=== PATIENT | female | born 1995 | race Caucasian/White ===

== ENCOUNTER 2017-01-17 01:30 | Emergency (ER) | payer OTHER ==
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
--- NOTE | 2017-01-17 03:28 | ED ORDER SUMMARY ---
..... Patient: JASMYN HERMAN OrderSheet [facility] VisitID: [id number] [place] [address] 21y, F Registration Date/Time: 01/17/2017 ORDER SHEET Weight: 61.2 kg (stated) Allergies: No Known Drug Allergy GENERAL ORDERS: US OB 1st Trimester (a few months ago) Urgent (01:01/17/2017 Karyna Johnson) (Ack 1:59 [facility] [employer] Account [employer]) (2:18 [facility] [employer]) CBC w Diff Urgent (:01/17/2017 Karyna Johnson) (Ack 1:59 CHagnayely [facility] [employer] Account Executive) (2:10 EInderbitzen R.N.) CMP Urgent (:01/17/2017 Karyna Johnson) (Ack 1:59 [facility] [employer]) (2:10 EInderbitzen R.N.) UA-Culture if indicated Urgent (:01/17/2017 Karyna Johnson) (Ack 1:59 [facility] [employer] Executive) (2:10 EInderbitzen R.N.) PT with INR Urgent (:01/17/2017 Karyna Johnson) (Ack 1:59 [facility] [employer] Account Executive) (2:10 EInderbitzen R.N.) PTT Urgent (:01/17/2017 Karyna Johnson) (Ack 1:59 [facility] [employer] Account Executive) (2:10 EInderbitzen R.N.) Type & Rh Urgent (:01/17/2017 Karyna Johnson) (Ack 1:59 [facility] [employer] Executive) (2:10 EInderbitzen R.N.) Serum Quantitative Urgent (:01/17/2017 Karyna Johnson) (Ack 1:59 CHagnayely [facility] [employer] Account Executive) (2:10 EInderbitzen R.N.) Fibrinogen Level Urgent (:01/17/2017 Karyna Johnson) (Ack 1:59 [facility] [employer]) (2:10 EInderbitzen R.N.) MEDICATION ORDERS: Keflex PO 500 mg (NOW) (03:28 01/17/2017 Karyna Johnson) (Ack 3:33 EInderdara R.N.) (3:40 EInderbitzen R.N.) IV FLUIDS: IV NS : initial bolus 1000 mL (1000 mL/hr), then none - for X1 (NOW) (01:56 01/17/2017 Karyna Johnson) (2:11 EInderdara R.N.) Morphine IV 4 mg (HIGH ALERT MEDICATION, NOW) (01:56 01/17/2017 Karyna Johnson) (2:16 EInderbitzen R.N.) ORDER SHEET NOTES: [Electronically signed by Magi Cantrell R.N. (03:42 01/17/2017)] [Electronically signed by Too Dom[address]nguez Dr[address] (05:28 01/19/2017)] [Electronically locked/signed by Magi Cantrell R.N. (03:42 01/17/2017)]
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
--- NOTE | 2017-01-17 03:28 | ED ORDER SUMMARY ---
..... Patient: JASMYN HERMAN OrderSheet [facility] VisitID: [id number] [place] [address] 21y, F Registration Date/Time: 01/17/2017 ORDER SHEET Weight: 61.2 kg (stated) Allergies: No Known Drug Allergy GENERAL ORDERS: US OB 1st Trimester (a few months ago) Urgent (01:01/17/2017 Karyna Johnson) (Ack 1:59 CHagerty ER Waste Minimization Technician) (2:18 CHagerty ER Waste Minimization Technician) CBC w Diff Urgent (:01/17/2017 Karyna Johnson) (Ack 1:59 CHagnayely ER Waste Minimization Technician) (2:10 EInderbitzen R.N.) CMP Urgent (:01/17/2017 Karyna Johnson) (Ack 1:59 CHagerty ER Waste Minimization Technician) (2:10 EInderbitzen R.N.) UA-Culture if indicated Urgent (:01/17/2017 Karyna Johnson) (Ack 1:59 CHagerty ER Waste Minimization Technician) (2:10 EInderbitzen R.N.) PT with INR Urgent (:01/17/2017 Karyna Johnson) (Ack 1:59 CHagnayely ER Waste Minimization Technician) (2:10 EInderbitzen R.N.) PTT Urgent (:01/17/2017 Karyna Johnson) (Ack 1:59 CHagerty ER Waste Minimization Technician) (2:10 EInderbitzen R.N.) Type & Rh Urgent (:01/17/2017 Karyna Johnson) (Ack 1:59 CHagerty ER Waste Minimization Technician) (2:10 EInderbitzen R.N.) Serum Quantitative Urgent (:01/17/2017 Karyna Johnson) (Ack 1:59 CHagnayely ER Waste Minimization Technician) (2:10 EInderbitzen R.N.) Fibrinogen Level Urgent (:01/17/2017 Karyna Johnson) (Ack 1:59 CHagerty ER Waste Minimization Technician) (2:10 EInderbitzen R.N.) MEDICATION ORDERS: Keflex PO 500 mg (NOW) (03:28 01/17/2017 Karyna Johnson) (Ack 3:33 EInderdara R.N.) (3:40 EInderbitzen R.N.) IV FLUIDS: IV NS : initial bolus 1000 mL (1000 mL/hr), then none - for X1 (NOW) (01:56 01/17/2017 Karyna Johnson) (2:11 EInderdara R.N.) Morphine IV 4 mg (HIGH ALERT MEDICATION, NOW) (01:56 01/17/2017 Karyna Johnson) (2:16 EInderbitzen R.N.) ORDER SHEET NOTES: [Electronically signed by Magi Cantrell R.N. (03:42 01/17/2017)] [Electronically signed by Too Domínguez Dr. (05:28 01/19/2017)] [Electronically locked/signed by Magi Cantrell R.N. (03:42 01/17/2017)]
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
--- NOTE | 2017-01-19 05:28 | ED MAR SUMMARY ---
..... Medication Administration Record [facility] [address] [place] [address] Patient: JASMYN HERMAN Visit ID: [id number] 21y, F Weight: 61.2 kg Height/Length: 63 in BMI: 23.9 ALLERGIES: No Known Drug Allergy Start 02:07 01/17/2017 Magi Cantrell R.N., Stop 03:10 01/17/2017 Magi Cantrell R.N. Medication Administered: IV NS (SALINE), Dose: IV Fluids over 1 hour(s), Rate: 1000 mL/hr, Dispensed: 1000 mL bag, Site: #1 right AC. Medication Ordered: IV NS : initial bolus 1000 mL (1000 mL/hr), then none - for X1 (NOW). Given 02:14 01/17/2017 Magi Cantrell R.N. Medication Administered: MORPHINE [IVP], Dose: 4 mg IVP over 1 minute(s), Site: #1 right AC. Medication Ordered: Morphine IV 4 mg (HIGH ALERT MEDICATION, NOW). Given 03:35 01/17/2017 Magi Cantrell R.N. Medication Administered: KEFLEX [PO] (CEPHALEXIN), Dose: 500 mg Capsules PO. Medication Ordered: Keflex PO 500 mg (NOW).
--- NOTE | 2017-01-19 05:28 | ED MED RECONCILIATION SUMMARY ---
Patient: JASMYN HERMAN Medication Reconciliation Report [facility] VisitID: [id number] [address] [place] [address] 21y, F Registration Date/Time: 01/17/2017 Weight: 61.2 kg Height/Length: 63 in. BMI: 23.9 ALLERGIES: No Known Drug Allergy The patient's Home Medications are listed below: CONTINUE TAKING THE FOLLOWING MEDICATIONS: Vitamins Oral The source(s) of the original Home Medication information: Not obtained. The following Medications were given to the patient in the Emergency Department: IV NS IV Fluids bolus 0, then 1000 mL/hr, administered: 01/17/2017 2:07:00 AM Morphine [IVP] IVP 4 mg, administered: 01/17/2017 2:14:00 AM Keflex [PO] PO 500 mg, administered: 01/17/2017 3:35:00 AM The following Medications were prescribed to the patient: Cephalexin 500 mg: take 1 capsule orally every 8 hours for 5 days. No refill.(disp 15 caps) -- Too Domínguez Dr. [place] 5 mg / 325 mg tablets: take 1 orally every 6 hours as needed for pain. Dispense twelve (12). No refill. Substitution is permissible. -- Too Domínguez Dr.
--- NOTE | 2017-01-19 05:28 | ED MED RECONCILIATION SUMMARY ---
Patient: JASMYN HERMAN Medication Reconciliation Report [facility] VisitID: [id number] [address] [place] [address] 21y, F Registration Date/Time: 01/17/2017 Weight: 61.2 kg Height/Length: 63 in. BMI: 23.9 ALLERGIES: No Known Drug Allergy The patient's Home Medications are listed below: CONTINUE TAKING THE FOLLOWING MEDICATIONS: Vitamins Oral The source(s) of the original Home Medication information: Not obtained. The following Medications were given to the patient in the Emergency Department: IV NS IV Fluids bolus 0, then 1000 mL/hr, administered: 01/17/2017 2:07:00 AM Morphine [IVP] IVP 4 mg, administered: 01/17/2017 2:14:00 AM Keflex [PO] PO 500 mg, administered: 01/17/2017 3:35:00 AM The following Medications were prescribed to the patient: Cephalexin 500 mg: take 1 capsule orally every 8 hours for 5 days. No refill.(disp 15 caps) -- Too Domínguez Dr. [place] 5 mg / 325 mg tablets: take 1 orally every 6 hours as needed for pain. Dispense twelve (12). No refill. Substitution is permissible. -- Too Domínguez Dr.
--- NOTE | 2017-01-19 05:28 | ED MAR SUMMARY ---
..... Medication Administration Record [facility] [address] [place] [address] Patient: JASMYN HERMAN Visit ID: [id number] 21y, F Weight: 61.2 kg Height/Length: 63 in BMI: 23.9 ALLERGIES: No Known Drug Allergy Start 02:07 01/17/2017 Magi Cantrell R.N., Stop 03:10 01/17/2017 Magi Cantrell R.N. Medication Administered: IV NS (SALINE), Dose: IV Fluids over 1 hour(s), Rate: 1000 mL/hr, Dispensed: 1000 mL bag, Site: #1 right AC. Medication Ordered: IV NS : initial bolus 1000 mL (1000 mL/hr), then none - for X1 (NOW). Given 02:14 01/17/2017 Magi Cantrell R.N. Medication Administered: MORPHINE [IVP], Dose: 4 mg IVP over 1 minute(s), Site: #1 right AC. Medication Ordered: Morphine IV 4 mg (HIGH ALERT MEDICATION, NOW). Given 03:35 01/17/2017 Magi Cantrell R.N. Medication Administered: KEFLEX [PO] (CEPHALEXIN), Dose: 500 mg Capsules PO. Medication Ordered: Keflex PO 500 mg (NOW).
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
== END 2017-01-17 03:41 | disposition home or self-care (01) ==
LOC: ED SRH 01:30
DX: O9A.211 Injury, poisoning and certain other consequences of external causes complicating pregnancy, first trimester (principal); Z3A.10 10 weeks gestation of pregnancy; S13.4XXA Sprain of ligaments of cervical spine, initial encounter; S33.5XXA Sprain of ligaments of lumbar spine, initial encounter; V48.6XXA Car passenger injured in noncollision transport accident in traffic accident, initial encounter; O23.41 Unspecified infection of urinary tract in pregnancy, first trimester; S00.33XA Contusion of nose, initial encounter; Y93.89 Activity, other specified; Y99.8 Other external cause status; Y92.410 Unspecified street and highway as the place of occurrence of the external cause
CPT/HCPCS: 90001; 90004; 90100; 90155; 90197; 90469; 94001; 94050; 94060; 95059

== ENCOUNTER 2017-03-14 13:07 | Outpatient (CLI) | payer OTHER ==
--- NOTE | 2017-03-14 15:23 | DIAGNOSTIC IMAGING REPORT ---
PROCEDURE: US OB DETAILED ANATOMIC INDICATION: ANATOMY TECHNIQUE: Baum scale, color, and spectral Doppler images of the second trimester gravid uterus were obtained. COMPARISON: None. FINDINGS: A single living intrauterine is in vertex presentation. There is regular cardiac activity at a rate of 140 beats per minute. The placenta is fundal and away from the internal cervical os. The cervix is closed measuring approximately 4.6 cm in length. The amniotic fluid volume is subjectively normal. Biparietal diameter 4.5 cm of 19 weeks and 4 days Head circumference 17.1 cm of 19 weeks and 5-day Abdominal circumference 14.7 cm at 20 weeks and 0 days Femur length 3.1 cm of 19 weeks and 4 days Head to abdominal circumference ratio and femur length to abdominal circumference ratios are normal. Estimated weight 313 Composite gestational age 19 weeks and 5 days, KRYSTAL 08/03/2017 There was visualization of a number of normal structures including the intracranial contents, facial features, nuchal region, spine, four-chamber heart and outflow tracts to the extent that could be visualized, diaphragm, fluid-filled stomach, kidneys, abdomen, urinary bladder, upper and lower extremities, and genitals. A three-vessel umbilical cord, normal and placental cord insertion sites were seen. IMPRESSION: 1. Single living intrauterine with a composite gestational age of 19 weeks and 5 days, KRYSTAL 08/03/2017 2. Symmetric and normal anatomy. 3. Size greater than dates by 3 days
== END 2017-03-14 23:00 | disposition home or self-care (01) ==
LOC: US SRH 13:07
DX: Z34.90 Encounter for supervision of normal pregnancy, unspecified, unspecified trimester (principal); Z3A.19 19 weeks gestation of pregnancy